=== PATIENT | male | born 1980 | race Two or more races ===

== ENCOUNTER 2022-06-24 08:28 | Emergency (ER) | payer MEDICAID ==
[~2022-06-24] VITALS: Ht 175.3 cm; Wt 77.3 kg
[2022-06-24 10:28] LABS: BASOPHILS % (AUTO) 0.1 % (0.0-2.0); EOSINOPHILS % (AUTO) 0 % (1.0-6.0); HEMOGLOBIN 15.6 g/dL (13.5-17.5); MEAN CORPUSCULAR HEMOGLOBIN 26.5 pg (26.0-34.0); MEAN CORPUSCULAR HGB CONC 32.6 G/dL (31.0-37.0); MEAN CORPUSCULAR VOLUME 81 fL (80-100); MONOCYTES # (AUTO) 1.3 K/uL (0.1-1.0); MONOCYTES % (AUTO) 8.7 % (2.0-9.0); NEUTROPHILS # (AUTO) 12.6 K/uL (1.8-7.7); NEUTROPHILS % (AUTO) 84.2 % (40.0-70.0); PLATELET COUNT (AUTO) 196 K/uL (150-450); RED BLOOD CELL COUNT(AUTO) 5.89 MIL/uL (4.50-5.90); RED CELL DISTRIBUTION WIDTH 13.5 % (11.5-14.5)
[2022-06-24 10:37] LABS: ANION GAP 6 mmol/L (8-16); CALCIUM, TOTAL 9.2 mg/dL (8.8-10.5); CARBON DIOXIDE 28 mmol/L (22-29); CHLORIDE 104 mmol/L (98-107); CREATININE 1.23 mg/dL (0.60-1.30); GLOMERULAR FILTR. RATE CALC > 60 mL/min (>60); GLUCOSE,RANDOM 119 mg/dL (70-110); POTASSIUM 4.6 mmol/L (3.5-5.1); SODIUM SERUM 138 mmol/L (136-145); UREA NITROGEN, BLOOD 18 mg/dL (7-18)
[2022-06-24 10:43] LABS: ALANINE AMINOTRANSFERASE 44 U/L (12-78); ALKALINE PHOSPHATASE 87 U/L (46-116); ASPARTATE AMINOTRANSFERASE 33 U/L (15-37); BILIRUBIN,TOTAL 0.3 mg/dL (0.1-1.0); LIPASE 111 U/L (73-393); TOTAL PROTEIN, SERUM 9.3 g/dL (6.4-8.2)
[2022-06-24 11:05] LABS: APPEARANCE,URINE CLEAR (CLEAR); BILIRUBIN,URINE NEGATIVE (NEGATIVE); GLUCOSE, URINE (UA) NEGATIVE (NEGATIVE); KETONES,URINE NEGATIVE (NEGATIVE); LEUKOCYTE ESTERASE ,URINE NEGATIVE (NEGATIVE); NITRATE,URINE NEGATIVE (NEGATIVE); OCCULT BLOOD,URINE TRACE (NEGATIVE); PH,URINE 5.5 (5.0-8.0); PROTEIN,URINE TRACE mg/dL (NEGATIVE); SPECIFIC GRAVITIY, URINE 1.037 (1.003-1.030); UROBILINOGEN,URINE <=1.0 mg/dL (<=1.0)
[2022-06-24 11:40] LABS: BACTERIA,URINE None Seen /HPF (None Seen); RBC,URINE None Seen /HPF (0-2); WBC,URINE 0-2 /HPF (0-5)
[2022-06-24] MEDS ORDERED: SODIUM CHLORIDE 0.9% 1,000 ML IV ONE (12:45)
[2022-06-24] MEDS ORDERED: FAMOTIDINE 40 MG in SODIUM CHLORIDE 0.9% 100 ML IV ONE (12:45)
[2022-06-24] MEDS ORDERED: SODIUM CHLORIDE 0.9% 100 ML ONE ×2 (12:54→12:55)
[2022-06-24] MEDS ORDERED: FAMOTIDINE 10 MG/ML 2 ML VIAL ONE (12:55)
[2022-06-24] MEDS ORDERED: FAMO20 PO (15:53)
[2022-06-24 16:00] VITALS: BP 126/74
== END 2022-06-24 16:12 | disposition home or self-care (01) ==
LOC: EMS 08:28
DX: R10.13 Epigastric pain (principal)
CPT/HCPCS: 99285; 74176; 96365; 80053; 81001; 83690; 85025; 36415; 93005; 81003; J3490; J7050